=== PATIENT | male | born 1955 | race Caucasian/White ===

== ENCOUNTER → 2020-07-11 | Outpatient (CLI) | payer MEDICARE ==
[2020-07-11 13:53] LABS: HCT 45.3 % (39.0-53.0); HGB 15.2 gm/dL (13.0-17.5); MCH 32.5 pg (25.0-35.0); MCHC 33.6 g/dL (31.0-37.0); MCV 96.9 fL (80.0-100.0); Mean Platelet Volume 7.8; Platelet Count 311 k/uL (150-450); RBC 4.68 m/uL (4.30-5.90); RDW 11.9 % (11.5-15.5); WBC 7.6 k/uL (3.8-10.6)
[2020-07-11 14:09] LABS: INR 0.9 (<1.2); Prothrombin Time 9.8 sec (9.0-12.0)
[2020-07-11 14:16] LABS: Appearance,Urine Clear (Clear); Bilirubin,Urine Negative (Negative); Blood,Urine Negative (Negative); Color,Urine Yellow; Glucose,Urine (UA) Negative (Negative); Ketones,Urine Negative (Negative); Leukocyte Esterase,Urine Negative (Negative); Nitrite,Urine Negative (Negative); PH, Urine 5.5 (5.0-8.0); Protein,Urine Negative (Negative); Specific Gravity,Urine 1.022 (1.001-1.035); Urobilinogen,Urine <2.0 mg/dL (<2.0)
[2020-07-11 14:17] LABS: ALT 15 U/L (4-49); AST 24 U/L (17-59); African American GFR (CKD) >90 (>60 ml/min/1.73 sqM); Albumin 4.3 g/dL (3.5-5.0); Alkaline Phosphatase 61 U/L (38-126); Anion Gap 6 mmol/L; Blood Urea Nitrogen 15 mg/dL (9-20); Calcium 9.4 mg/dL (8.4-10.2); Carbon Dioxide 29 mmol/L (22-30); Chloride 104 mmol/L (98-107); Glucose 93 mg/dL (74-99); Non-African American GFR(CKD) 78 (>60 ml/min/1.73 sqM); Sodium 139 mmol/L (137-145); Total Bilirubin 1.1 mg/dL (0.2-1.3); Total Protein 7.1 g/dL (6.3-8.2)
== END | disposition home or self-care (01) ==
LOC: LABPAT 12:23
PROVIDERS: ATTEND Orthopaedic Surgery
DX: Z01.818 Encounter for other preprocedural examination (principal); Z01.812 Encounter for preprocedural laboratory examination
CPT/HCPCS: 36415; 80053; 81003; 85027; 85610; 85730; 86850; 86900; 86901; 87070; 93005

== ENCOUNTER 2020-07-17 05:31 | Day surgery (SDC) | payer MEDICARE ==
[2020-07-12 10:36] VITALS: BMI 33.9
[~2020-07-17 05:31] MED LIST: ACETAMINOPHEN TAB 500 MG TAB PO ONE; GABAPENTIN 300 MG CAP PO ONE; MELOXICAM 7.5 MG TAB PO ONE; TRANEXAMIC ACID 1,000 MG in SODIUM CHLORIDE 0.9% 100 ML IVPB ONE
[2020-07-17] MEDS ORDERED: ONDANSETRON 4 MG/2 ML VIAL ONE (05:36)
[2020-07-17] MEDS ORDERED: LACTATED RINGERS 1,000 ML IV ONE ×3 (06:10→08:50)
[2020-07-17] MEDS ORDERED: DEXAMETHASONE SOD PHOSPHATE 4 MG/ML 1 ML VIAL IV ONE (06:15)
[2020-07-17] MEDS ORDERED: fentaNYL (PF) 50 MCG/ML 2 ML AMP ONE (06:53)
[2020-07-17] MEDS ORDERED: SUCCINYLCHOLINE CHLORIDE 100 MG/5 ML SYR IV ONE (06:53)
[2020-07-17] MEDS ORDERED: PROPOFOL 10 MG/ML 20 ML VIAL IV ONE (06:53)
[2020-07-17] MEDS ORDERED: TRANEXAMIC ACID 1,000 MG/10 ML VIAL ONE (06:53)
[2020-07-17] MEDS ORDERED: MIDAZOLAM 2 MG/2 ML VIAL ONE (06:53)
[2020-07-17] MEDS ORDERED: SODIUM CHLORIDE 0.9% 100 ML BAG ONE (06:53)
[2020-07-17] MEDS ORDERED: PHENYLEPHRINE-0.9% NACL SYG 1 MG/10 ML SYRINGE ONE (06:53)
[2020-07-17] MEDS ORDERED: HEPARIN SODIUM,PORCINE 10,000 UNIT/ML 1 ML VIAL ONE (06:53)
[2020-07-17] MEDS ORDERED: SODIUM CHLORIDE 0.9% IRRIG 1,000 ML BTL IRRIGATION ONE (06:53)
[2020-07-17] MEDS ORDERED: LIDOCAINE 1% INJ 10MG/ML (20 ML MDV) ONE (06:53)
[2020-07-17] MEDS: ROPIVACAINE 246.25 MG, EPINEPHrine 0.5 MG, KETOROLAC 30 MG, cloNIDine HCL/PF 80 MCG, WA... MISCELLANE ONE ×10 (06:54→08:07)
[2020-07-17] MEDS ORDERED: HYDROmorphone 0.5 MG/0.5 ML SYRINGE IVP PRN ×2 (07:04)
[2020-07-17] MEDS ORDERED: HYDROmorphone 0.2 MG/1 ML SYRINGE IVP PRN (07:04)
[2020-07-17] MEDS ORDERED: MAGNESIUM HYDROXIDE 2,400 MG/10 ML CUP PO PRN (07:04)
[2020-07-17] MEDS ORDERED: hydrOXYzine pamoate 25 MG CAP PO PRN (07:04)
[2020-07-17] MEDS ORDERED: diazePAM 5 MG TAB PO PRN (07:04)
[2020-07-17] MEDS ORDERED: HYDROcodone/APAP 5-325MG 1 EACH TAB PO PRN (07:04)
[2020-07-17] MEDS ORDERED: ONDANSETRON 4 MG/2 ML VIAL IVP PRN (07:04)
[2020-07-17] MEDS ORDERED: NALOXONE 0.4 MG/ML 1 ML VIAL IV PRN (07:04)
--- NOTE | 2020-07-17 08:31 | P.OP ---
Date of Procedure: 07/17/20 Preoperative Diagnosis: Severe osteoarthritis right hip Postoperative Diagnosis: Severe osteoarthritis right hip Procedure(s) Performed: Right total hip arthroplasty with a direct anterior approach Implants: [employer] Polarstem standard size 4 [employer] R3, 3 hole hemispherical acetabular shell, 54 mm [employer] Reflection 6.5 mm cancellus screw, 20 mm 2 [employer] R3, XLPE 20 acetabular liner [employer] Oxinium femoral head 36 m, +0 All components were press-fit. The articulation is Oxinium on polyethylene. Anesthesia: spinal Surgeon: You Mcmahon Human Resources Benefits Coordinator #1: Ekta Ayala Estimated Blood Loss (ml): 200 (70 mL returned with Cell Saver) Pathology: other (Femoral head) Condition: stable Disposition: PACU Indications for Procedure: After failure of conservative treatment we discussed the surgical and nonsurgical treatment options at length. Patient wishes to proceed with a total hip arthroplasty with a direct anterior approach. Complications specific to this procedure were discussed at length, including but not limited to infection, leg length discrepancy, dislocation, nerve injury, and fracture. Covid-19 was also discussed at length with the patient, and they are aware of the current policies and procedures. The patient was given the option of delaying surgery, but they elect to proceed knowing these risks. Patient is aware of all these complications and informed consent was obtained Operative Findings: The operative findings are consistent with severe osteoarthritis of the right hip Description of Procedure: Patient was seen and evaluated in the preoperative area and the consent was reviewed. The operative site was marked with a skin marker. The patient was then brought to the operating room and given preoperative antibiotics intravenously. 1 g of Tranexamic acid was also given intravenously. A spinal anesthetic was administered by the anesthesia department. The patient was then placed on the Guy table with the bony prominences well-padded. The hip area was then prepped with a ChloraPrep solution and draped in the usual sterile fashion. A universal timeout was then performed, which confirmed the patient's name, surgical site, ALLERGIES, and procedure being performed on the consent. Next the incision site was located at 1 cm distal and 1 cm lateral to the anterior superior iliac spine. The skin and subcutaneous tissues were sharply incised. Incision was carefully dissected down to the fascia overlying the tensor fascia harinder muscle. This fascia was then incised in line with the incision. Care was taken to stay laterally in order to avoid injuring the lateral femoral cutaneous nerve. Next, using blunt finger dissection, the tensor fascia harinder muscle was dissected off its investing fascia. The muscle was then carefully retracted laterally with a cobra retractor over the lateral neck of the femur. Next, the circumflex vessels were identified and cauterized using the AquaMantis device. The anterior hip capsule was then exposed. The capsule was then opened and an inverted T fashion. Cobra retractors were then placed intracapsularly. The retractors were maintained intracapsular throughout the procedure. The proximal femur was then visualized. A small amount of traction was placed on the leg. The femoral neck was then osteotomized appropriate level above the lesser trochanter. A small wedge of bone was then removed from the remaining femoral head. Next, using a corkscrew the femoral head was removed from the acetabulum. On gross visual inspection, the femoral head had complete loss of articular cartilage and multiple periarticular osteophytes. The femoral head was then measured. Attention was then turned to the acetabulum. The acetabulum was exposed and any remaining labrum was excised. Sequential reaming of the acetabulum was performed using fluoroscopic guidance until there was a good bed of bleeding cancellus bone. When the appropriate size was reached, a trial was then placed. The position and fit of the trial was checked with fluoroscopy. The trial was then removed. Then, using fluoroscopic guidance, the final implant was impacted at 20 of anteversion and 40 of abduction, and fully seated in the acetabulum. 2 screws were then placed in the acetabulum. Again fluoroscopy was used to check position of the screws. Next, the liner was then impacted, with a 20 elevated liner located in the anterior superior quadrant. Component locking was confirmed. Attention was then directed to the femur. With the aid of the Guy table, the femur was externally rotated to approximately 130, extended, and adducted under the opposite leg. A side hook was then placed under the proximal femur, and the side hook elevator was used to elevate the proximal femur while releasing the capsule. Retractors were then placed. A capsular release was performed, as well as a release of the conjoined tendon, which afforded excellent visualization of the proximal femur. Next, a box osteotome was used to lateralize the proximal femur. A printing table hand was then used to locate the femoral canal. Sequential broaching was then performed with appropriate size which afforded excellent fixation in the proximal femur. A trial was then placed with appropriate head and neck, and the hip was gently reduced with the aid of the Guy table. Fluoroscopy was then used to check position of the components, as well as to ensure equal leg lengths. The hip was then gently dislocated and the trials were then removed. Final implants were then impacted and the hip was again reduced. Final fluoroscopic x-rays confirmed that the components were in anatomic position, as well as equal leg lengths. The hip was also taken through range of motion, and found to be stable. The hip was then copiously irrigated with antibiotic solution with pulsatile lavage. The hip was then irrigated with Irrisept solution. The soft tissues were then injected with a ropivacaine solution, which consisted of 246.25 mg of ropivacaine, 0.5 mg of epinephrine, 30 mg of Toradol, 80 g of clonidine, and 48.45 mL of sterile water, for a total of 100 mL of fluid injected. A second dose of 1 g of Tranexamic acid was also given intravenously. Any blood collected by Cell Saver was then returned to the patient at this time. The fascia was then closed with 2-0 strata fix suture. The subcutaneous tissue was closed with 3-0 Vicryl. The subcuticular tissue was closed with 3-0 strata fix suture. The skin was then closed with Exofin skin glue. After the glue and dried, and Optifoam silver impregnated dressing was applied. The patient was then transferred to the recovery room in stable condition. The plumber assistant EVERTON Galvez was required due to the complexity of surgery, and the need for skilled surgical technology instructor for positioning, draping, exposure, retraction, and closure of the wound.
[2020-07-17] MEDS ORDERED: ePHEDrine 50 MG/ML 1 ML AMP IVP ONE (08:39)
--- NOTE | 2020-07-17 08:57 | FL ---
Fluoroscopy History: RT ANTERIOR HIP ARTHROPLASTY 2 FILMS, 40 SEC FL
--- NOTE | 2020-07-17 09:05 | XR ---
EXAMINATION TYPE: XR Hip Limited RT DATE OF EXAM: 07/17/2020 CLINICAL HISTORY: Postoperative evaluation TECHNIQUE: Single portable view of the right hip was submitted. FINDINGS: Noted are changes of total hip arthroplasty with femoral and acetabular components appearin g well seated. Alignment is anatomic. Postsurgical soft tissue changes are evident. IMPRESSION: Satisfactory postoperative alignment
[2020-07-17] MEDS: SODIUM CHLORIDE 0.9% 1,000 ML IV SCH ×2 (10:19→23:00)
[2020-07-17] MEDS: ASPIRIN 325 MG TAB PO SCH (20:02)
[2020-07-17] MEDS: HYDROcodone/APAP 5-325MG 1 EACH TAB PO PRN (20:02)
[2020-07-17] MEDS ORDERED: PANTOPRAZOLE 40 MG TABLET PO SCH (21:00)
[2020-07-17] MEDS ORDERED: SENNOSIDES-DOCUSATE SODIUM 1 EACH TAB PO SCH (21:00)
[2020-07-17] MEDS ORDERED: lisinopriL 5 MG TAB PO SCH (21:00)
[2020-07-17] MEDS ORDERED: ATORVASTATIN 10 MG TAB PO SCH (21:00)
--- NOTE | 2020-07-18 00:16 | P.CONS ---
History of Present Illness - Reason for Consult Consult date: 07/17/20 medical management Requesting physician: You Mcmahon - Chief Complaint Right hip surgery - History of Present Illness Consultation: This is a pleasant 65-year-old patient, was chronic stable medical conditions include GERD, hypertension, hyperlipidemia, osteoarthritis. Patient has undergone right total hip arthroplasty. Postprocedure pain is controlled. No nausea vomiting. No chest pain. Sitting up in bed. Review of systems: GEN.: None EYES: None HEENT: None NECK: None RESPIRATORY: None CARDIOVASCULAR: None GASTROINTESTINAL: None GENITOURINARY: None MUSCULOSKELETAL: Joint pains LYMPHATICS: None HEMATOLOGICAL: None PSYCHIATRY: None NEUROLOGICAL: None Past medical history to include: GERD, hypertension, hyperlipidemia, osteoarthritis Social history: Does not smoke. Alcohol occasionally. . Patient does crop farming Physical examination: VITAL SIGNS: 97.9, 71, 17, 107/62, 93% on room air] GENERAL: BMI 33.6, sitting up, comfortable. EYES: Pupils equal. Conjunctiva normal. HEENT: External appearance of nose and ears normal, oral cavity grossly normal. NECK: JVD not raised; masses not palpable. HEART: First and second heart sounds are normal; no edema. LUNGS: Respiratory rate normal; clear to auscultation. ABDOMEN: Soft, nontender, liver spleen not palpable, no masses palpable. PSYCH: Alert and oriented x3; mood and affect normal. MUSCULAR skeletal: Dressing over the incision site NEUROLOGICAL: Cranial nerves grossly intact; no facial asymmetry, power and sensation grossly intact. LYMPHATICS: No lymph nodes palpable in the axilla and neck INVESTIGATIONS, reviewed in the clinical context ;White count 7.6 hemoglobin 15.2 platelets 311 potassium 5 creatinine 1.01 Assessment: -Right total hip osteoplasty -GERD -Hyperlipidemia -Essential hypertension -Primary osteoarthritis Plan: Home medications resumed. Patient received Ancef for perioperative infection prophylaxis. Pain control. On aspirin for DVT prophylaxis. Care was discussed with the patient. Questions were answered. Thank you Dr. Mcmahon Past Medical History Past Medical History: GERD/Reflux, Hyperlipidemia, Hypertension, Osteoarthritis (OA) History of Any Multi-Drug Resistant Organisms: None Reported Past Surgical History: Joint Replacement Additional Past Surgical History / Comment(s): left hip replaced, cataracts removed, Right hip replacement 07/17/20. Past Anesthesia/Blood Transfusion Reactions: No Reported Reaction Past Psychological History: No Psychological Hx Reported Smoking Status: Never smoker Past Alcohol Use History: Occasional Past Drug Use History: None Reported - Past Family History Mother Family Medical History: Cancer Medications and Allergies Home Medications Medication Instructions Recorded Confirmed Type Ibuprofen [Motrin Ib] 200 - 400 mg PO Q6H PRN 07/12/20 07/12/20 History Omeprazole Magnesium [PriLOSEC OTC] 20 mg PO HS 07/12/20 07/12/20 History Simvastatin [Zocor] 20 mg PO HS 07/12/20 07/12/20 History lisinopriL [Zestril] 5 mg PO HS 07/12/20 07/12/20 History Allergies Allergy/AdvReac Type Severity Reaction Status Date / Time No Known Allergies Allergy Verified 07/12/20 10:01 Physical Exam Vitals: Vital Signs Temp Pulse Pulse Resp BP BP Pulse Ox 07/17/20 09:40 74 16 112/59 98 07/17/20 09:25 78 16 109/59 98 07/17/20 09:10 66 18 113/52 98 07/17/20 08:55 75 16 108/57 98 07/17/20 08:40 73 16 104/58 96 07/17/20 08:35 97.7 F 75 16 76/40 94 L 07/17/20 06:10 98.8 F 72 20 129/80 96 Intake and Output 07/16/20 07/17/20 07/17/20 22:59 06:59 14:59 Intake Total 850 400 Output Total 200 Balance 850 200 Intake: IV 850 400 Output: Estimated Blood Loss 200 Other: Weight 112.5 kg 112.5 kg
[2020-07-18] MEDS: HYDROcodone/APAP 5-325MG 1 EACH TAB PO PRN ×2 (04:22→09:49)
[2020-07-18 06:42] LABS: Basophils % (A) 0 %; Eosinophils # (A) 0.1 k/uL (0-0.7); Eosinophils % (A) 1 %; HCT 35.8 % (39.0-53.0); Lymphocytes # (A) 1.2 k/uL (1.0-4.8); Lymphocytes % (A) 14 %; MCHC 33.9 g/dL (31.0-37.0); MCV 97.2 fL (80.0-100.0); Mean Platelet Volume 7.7; Monocytes # (A) 0.6 k/uL (0-1.0); Monocytes % (A) 7 %; Neutrophils # (A) 6.8 k/uL (1.3-7.7); Neutrophils % (A) 76 %; Platelet Count 217 k/uL (150-450); RBC 3.68 m/uL (4.30-5.90); RDW 12.1 % (11.5-15.5); WBC 8.9 k/uL (3.8-10.6)
[2020-07-18 07:32] LABS: HGB 12.1 gm/dL (13.0-17.5)
[2020-07-18 07:47] VITALS: BP 126/67; PULSE 76; RESP 20; TEMP 98.5
[2020-07-18] MEDS: ASPIRIN 325 MG TAB PO SCH (08:11)
[2020-07-18] MEDS ORDERED: MELOXICAM 7.5 MG TAB PO SCH (09:00)
--- NOTE | 2020-07-18 09:26 | P.DS ---
Providers Expected date of discharge: 07/18/20 Attending physician: You Mcmahon Consults: 07/17/20 07:04 Consult Physician Routine Consulting Provider: Carlin Harris Consult Reason/Comments: medical management Do you want consulting provider notified?: Yes Primary care physician: Stated None Hospital Course: This is a 65-year-old male with known history of degenerative arthritis of the right hip. The patient presented for evaluation as an outpatient. After discussion and consideration patient elects to proceed with total hip arthroplasty. The patient is seen preoperatively by Dr. Mcmahon and medically cleared for surgery by their primary care physician. Patient is admitted to [facility] on 07/17/2020 for total hip arthroplasty. The procedure is performed without complication or sequelae. The patient is doing well postoperatively. Labs and vital signs are stable on day of discharge. On day of discharge patient's hip incision is healing well. There is minimal erythema. There is no drainage noted at this time. There is minimal soft tissue swelling to the hip and thigh. Patient has full foot and ankle motion without difficulty or pain. Calf is soft and nontender to palpation. Neurovascular status to the right lower extremity is intact. Patient is discharged home in good condition. Opioid start talking form is reviewed and signed. Please see med rec for accurate list of home medications. Plan - Discharge Summary Discharge Rx Participant: No New Discharge Prescriptions: New Aspirin 325 mg PO BID #60 tab HYDROcodone/APAP 5-325MG [[place] 5-325] 1 - 2 tab PO Q6HR PRN #48 tab PRN Reason: Pain Sennosides [Senokot] 2 tab PO DAILY PRN #60 tablet PRN Reason: Constipation No Action lisinopriL [Zestril] 5 mg PO HS Simvastatin [Zocor] 20 mg PO HS Ibuprofen [Motrin Ib] 200 - 400 mg PO Q6H PRN PRN Reason: Pain Omeprazole Magnesium [PriLOSEC OTC] 20 mg PO HS Discharge Medication List Ibuprofen [Motrin Ib] 200 - 400 mg PO Q6H PRN 07/12/20 [History] Omeprazole Magnesium [PriLOSEC OTC] 20 mg PO HS 07/12/20 [History] Simvastatin [Zocor] 20 mg PO HS 07/12/20 [History] lisinopriL [Zestril] 5 mg PO HS 07/12/20 [History] Aspirin 325 mg PO BID #60 tab 07/18/20 [Rx] HYDROcodone/APAP 5-325MG [[place] 5-325] 1 - 2 tab PO Q6HR PRN #48 tab 07/18/20 [Rx] Sennosides [Senokot] 2 tab PO DAILY PRN #60 tablet 07/18/20 [Rx] Follow up Appointment(s)/Referral(s): You Mcmahon DO [Doctor of Osteopathic Medicine] - 2 Weeks Activity/Diet/Wound Care/Special Instructions: Weightbearing as tolerated with walker. Leave dressing intact. Dressing may be removed by home care nurse or by patient in 10 days. May shower with dressing on. Please take aspirin 325mg twice daily for 30 days to prevent blood clots. Recommend use of compression stockings daily until follow up to help prevent swelling and blood clots. May remove at night before sleeping. Please follow-up with [facility] in 2 weeks and call with any questions or concerns, . Discharge Disposition: HOME WITH HOME HEALTH SERVICES
== END 2020-07-18 12:33 | disposition home health service (06) ==
LOC: OR 05:31 → 4SSUR 09:32 → OR 07-18 12:33
PROVIDERS: ATTEND Orthopaedic Surgery
DX: M16.11 Unilateral primary osteoarthritis, right hip (principal); K21.9 Gastro-esophageal reflux disease without esophagitis; I10 Essential (primary) hypertension; E78.5 Hyperlipidemia, unspecified; Z98.49 Cataract extraction status, unspecified eye; Z96.642 Presence of left artificial hip joint; Z79.1 Long term (current) use of non-steroidal anti-inflammatories (NSAID); Z79.899 Other long term (current) drug therapy
CPT/HCPCS: 97116; 97110; 97161; 97535; 97165; 86891; 85025; 88300; 73501; 27130; C1776; J2250; J0171; J1644; J1100; J0690; J2405; J2001; J3010; J1885; J2795; J2370; J0330; J2704; J0735; 86850; 86900; 86901

== ENCOUNTER → 2024-06-08 | Outpatient (CLI) | payer MEDICARE ==
--- NOTE | 2024-06-08 20:50 | MR ---
EXAMINATION TYPE: MR lumbar spine wo con DATE OF EXAM: 06/08/2024 COMPARISON: Lumbar spine radiograph 06/03/2024 HISTORY: Low back pain into left buttocks x6 month, Lack of mobility TECHNIQUE: Multiplanar, multisequence images of the lumbar spine were acquired without IV contrast. FINDINGS: The lumbar vertebral bodies do have preserved heights and alignment. Multilevel disc noé ccation is present. T1/T2 hyperintense benign vertebral hemangiomata involving the T12 vertebral bod y. The conus medullaris and the distal spinal cord do appear unremarkable with regards to their signa l intensity and morphology. Bilateral hip arthroplasty changes demonstrated on survey imaging. T12-L1: No significant disc pathology. No significant central or neural foraminal stenosis. L1-L2: Mild disc bulge resulting in mild central canal narrowing. No significant neural foraminal s tenosis. L2-L3: Minimal disc bulge without central canal stenosis. No significant neural foraminal stenosis. L3-L4: Broad-based disc bulge is identified with associated enlargement of the facet joints. Bilater al ligamentum flavum buckling. The spinal canal is moderately narrowed. Moderate right and mild to mo derate left neuroforaminal stenosis. L4-L5: Broad-based disc bulge is identified with associated enlargement of the facet joints. Bilater al ligamentum flavum buckling. The spinal canal is moderately narrowed. Neural canals are mildly narr owed bilaterally. L5-S1: Central disc protrusion with left paracentral caudal extrusion of approximately 3 mm. No sign ificant central canal stenosis. Bilateral facet arthropathy. Moderate bilateral neural foraminal sten osis. Other significant findings: None. IMPRESSION: Multilevel disc degeneration with associated osteoarthritic changes as described above. Moderate cent ral canal stenosis at L3-L4 and L4-L5 secondary to disc bulges with facet arthropathy and ligamentum flavum buckling. L5-S1 disc herniation. [facility], , 06/08/2024 8:48 PM
== END ==
LOC: RADMRIMAIN 20:15
PROVIDERS: ATTEND Orthopaedic Surgery
DX: M47.816 Spondylosis without myelopathy or radiculopathy, lumbar region (principal); M51.27 Other intervertebral disc displacement, lumbosacral region; M51.369 Other intervertebral disc degeneration, lumbar region without mention of lumbar back pain or lower extremity pain
CPT/HCPCS: 72148